=== PATIENT | female | born 1965 | race African-American/Black ===

== ENCOUNTER 2017-10-10 10:52 | Day surgery (SDC) | payer BC ==
[2017-10-03 12:56] VITALS: BMI 26.6
[2017-10-10] MEDS ORDERED: PROPOFOL 20 ML ONE ×5 (11:16→15:59)
[2017-10-10 16:39] VITALS: TEMP 97.8
[2017-10-10 17:18] VITALS: BP 160/92; PULSE 64
== END 2017-10-10 17:19 | disposition home or self-care (01) ==
LOC: FASU-ENDO 10:52
PROVIDERS: ATTEND Internal Medicine Gastroenterology
PROC: 0DJD8ZZ Inspection of Lower Intestinal Tract, Via Natural or Artificial Opening Endoscopic (ICD-10-PCS; principal; 2017-10-10 12:45)
DX: D64.9 Anemia, unspecified (principal); K64.8 Other hemorrhoids; Q43.8 Other specified congenital malformations of intestine
CPT/HCPCS: 84703